=== PATIENT | male | born 1940 | race Caucasian/White ===

== ENCOUNTER 2017-11-02 13:51 | Emergency (ER) | payer OTHER ==
[~2017-11-02] VITALS: Ht 170.2 cm; Wt 86.2 kg
--- NOTE | 2017-11-02 17:41 | ULTRASOUND REPORT ---
EXAMINATION: US TRIPLEX LOWER EXTREMITY, LEFT CLINICAL INFORMATION: Pain. Swelling. COMPARISON: None TECHNIQUE: Color-flow triplex imaging with spectral analysis and compression Doppler were performed on the lower extremity. FINDINGS: Respiratory variation, normal compression and augmented flow are noted throughout the lower extremity. The visualized common femoral vein, superficial femoral vein, profunda femoral vein, popliteal vein and midcalf peroneal and posterior tibial venous segments show no evidence of deep venous thrombosis. There is no Guardado's cyst. IMPRESSION: No evidence of deep venous thrombosis involving the lower extremity.
[2017-11-02 18:03] VITALS: BP 148/80
--- NOTE | 2017-11-02 18:07 | ED UPPER/LOWER EXTREMITY COMPL ---
History of Present Illness General Chief Complaint: General Adult Stated Complaint: SIB DR. DENTON POSSIBLE BLOT COT IN LEFT LEG Source: patient Exam Limitations: no limitations Vital Signs & Intake/Output Vital Signs & Intake/Output Vital Signs Date Time Temp Pulse Resp B/P B/P Pulse O2 O2 Flow FiO2 Mean Ox Delivery Rate 11/02 1803 98.0 71 18 148/80 98 Room Air 11/02 1445 97.6 91 20 135/69 96 Room Air Allergies Coded Allergies: No Known Allergies (11/02/17) Triage Note: SIB DR DENTON B/L LEG EDEMA, R/O DVT. PT STATES LEFT LEG IS SWOLLEN BUT DENIES PAIN. PT DENIES CP/SOB. DENIES RECENT TRAVEL Triage Nurses Notes Reviewed? yes Onset: Gradual Duration: constant Timing: recent history Severity: moderate Severity Numbers: 5 HPI: Patient is a 77-year-old male with a past medical history of hypertension and BPH who presents emergency room seen that approximately one month ago while in a seated position he was bending forward using his back stood up and had acute onset of left lateral back and gluteal pain. Patient was evaluated at this time at an urgent care facility was diagnosed with lumbar strain patient states that since he is complaining of left lower extremity swelling. Patient denies any pain of his back or legs denies any chest pain fever chills back pain, hemoptysis History of DVT or PE dyspnea on exertion claudication Patient was sent by primary care doctor for DVT to left lower extremity. (Rl Olivas) Past History Travel History Traveled to [place] past 21 day No Medical History Any Pertinent Medical History? see below for history EENT: RETINAL DETACHMENT Cardiovascular: hypertension Surgical History Surgical History: non-contributory Psychosocial History What is your primary language Greenlandic Tobacco Use: Never used ETOH Use: denies use Illicit Drug Use: denies illicit drug use Family History Hx Contributory? No (Rl Olivas) Review of Systems Review of Systems Constitutional: Reports: no symptoms. EENTM: Reports: no symptoms. Respiratory: Reports: no symptoms. Cardiovascular: Reports: see HPI, peripheral edema. Gastrointestinal/Abdominal: Reports: no symptoms. Genitourinary: Reports: no symptoms. Musculoskeletal: Reports: see HPI. Skin: Reports: no symptoms. Neurological/Psychological: Reports: no symptoms. Hematologic/Endocrine: Reports: no symptoms. Immunological: Reports: no symptoms. All Other Systems: Reviewed and Negative (Rl Olivas) Physical Exam Physical Exam General Appearance: no apparent distress, alert, comfortable Head: atraumatic Eyes: Bilateral: normal appearance. Ears, Nose, Throat: hearing grossly normal Neck: normal inspection Cardiovascular/Respiratory: no respiratory distress Peripheral Pulses: 2+ dorsalis pedis (L) Neurologic/Tendon: normal sensation, normal motor functions, normal tendon functions, responds to pain, no evidence tendon injury, no pulse deficit Skin: intact, normal color, warm/dry Comments: Knee normal inspection nontender Left ankle noted +2 pitting edema nontender full active range of motion Left foot noted +2 pitting edema pedal pulse +2 Left lower extremity dermatomes intact nontender (Rl Olivas) Progress Differential Diagnosis: arterial insufficiency, CHF, compartment syndrome, contusion, dislocation, DVT, fracture, gout, septic arthritis, sprain, tendon injury Plan of Care: Patient is neurovascularly intact to left lower extremity, ultrasound was negative for DVT. No concern for pulmonary embolism or infectious process, discussed results with patient Diagnostic Imaging: Viewed by Me: Ultrasound. Radiology Impression: no acute abnormality Comments: PATIENT: FERNANDO HAAS PRESENT AGE: 77 PATIENT ACCOUNT NO: [id number] : 42 LOCATION: [facility] ORDERING PHYSICIAN: Ge Romano DO SERVICE DATE: 11/02/17 EXAM TYPE: US - US-UNILATERAL VENOUS DOPPLER EXAMINATION: US TRIPLEX LOWER EXTREMITY, LEFT CLINICAL INFORMATION: Pain. Swelling. COMPARISON: None TECHNIQUE: Color-flow triplex imaging with spectral analysis and compression Doppler were performed on the lower extremity. FINDINGS: Respiratory variation, normal compression and augmented flow are noted throughout the lower extremity. The visualized common femoral vein, superficial femoral vein, profunda femoral vein, popliteal vein and midcalf peroneal and posterior tibial venous segments show no evidence of deep venous thrombosis. There is no Guardado's cyst. IMPRESSION: No evidence of deep venous thrombosis involving the lower extremity. DICTATED BY: Ibrahima Morgan MD DATE/TIME DICTATED:11/02/171736 [place] ATTENDANT:JACQUI DATE/TIME TRANSCRIBED:11/02/171736 CONFIDENTIAL, DO NOT COPY WITHOUT APPROPRIATE AUTHORIZATION. <Electronically signed in Other Vendor System> SIGNED BY: Ibrahima Morgan MD 11/02/17 3442 (Rl Olivas) Departure Departure Disposition: HOME OR SELF CARE Condition: Stable Clinical Impression Primary Impression: Left leg swelling Referrals: Dilcia HAMPTON,Jose Perez (PCP/Family) Additional Instructions: As discussed begin elevating THE foot for swelling, begin use an Sachin wrap for swelling. Follow-up with your doctor as you have an appointment this Tuesday. If symptoms worsen or if YOU develop new concerning symptoms return to emergency room Departure Forms: Customer Survey General Discharge Information (Rl Olivas) PA/SYNCHRONIZER Co-Sign Statement Statement: ED Attending supervision documentation- [] I saw and evaluated the patient. I have also reviewed all the pertinent lab results and diagnostic results. I agree with the findings and the plan of care as documented in the PA's/SYNCHRONIZER's documentation. [x] I have reviewed the ED Record and agree with the PA's/SYNCHRONIZER's documentation. [] Additions or exceptions (if any) to the PAs/SYNCHRONIZER's note and plan are summarized below: [] (Umer Hutchinson DO)
== END 2017-11-02 18:17 ==
LOC: ERH 13:51
DX: M79.89 Other specified soft tissue disorders (principal)